=== PATIENT | female | born 2000 | race African-American/Black ===

== ENCOUNTER 2023-03-08 20:12 | Emergency (ER) | payer MEDICAID ==
[~2023-03-08] VITALS: Ht 162.6 cm; Wt 85.0 kg
[2023-03-08 20:21] VITALS: BP 105/45; PULSE 88; RESP 18; TEMP 98.7; O2SAT 100
[2023-03-08] MEDS ORDERED: GUAI-741 MT (21:07)
[2023-03-08] MEDS ORDERED: GUAIFENESIN 600MG ER TABLET PO SCH (21:15)
== END 2023-03-08 22:52 | disposition home or self-care (01) ==
LOC: ER 20:12
DX: J06.9 Acute upper respiratory infection, unspecified (principal); J45.909 Unspecified asthma, uncomplicated
CPT/HCPCS: 99282

== ENCOUNTER 2023-07-22 13:44 | Emergency (ER) | payer MEDICAID, OTHER ==
[~2023-07-22] VITALS: Ht 165.1 cm; Wt 80.0 kg
[~2023-07-22 13:44] MED LIST: GUAI-741 MT
[2023-07-22 13:56] VITALS: BP 128/67; O2SAT 100
[2023-07-22] MEDS ORDERED: IBUP-2030 MT (17:16)
[2023-07-22 17:44] VITALS: PULSE 87; RESP 16; TEMP 98.5
== END 2023-07-22 17:45 | disposition home or self-care (01) ==
LOC: ER 14:06
DX: S49.91XA Unspecified injury of right shoulder and upper arm, initial encounter (principal); J45.909 Unspecified asthma, uncomplicated; W18.30XA Fall on same level, unspecified, initial encounter; Y93.89 Activity, other specified; Y92.89 Other specified places as the place of occurrence of the external cause; Y99.8 Other external cause status
CPT/HCPCS: 73030; 81025; 99283

== ENCOUNTER 2023-09-08 10:47 | Emergency (ER) | payer MEDICAID ==
[~2023-09-08] VITALS: Ht 165.1 cm; Wt 76.0 kg
[~2023-09-08 10:47] MED LIST changes: +IBUP-2030 MT
[2023-09-08 11:08] VITALS: BP 129/87; PULSE 72; RESP 18; TEMP 98.5; O2SAT 99
[2023-09-08] MEDS ORDERED: B50 MT (13:02)
[2023-09-08] MEDS ORDERED: PROC-27 MT (13:02)
[2023-09-08] MEDS ORDERED: IBUP-2030 MT (13:02)
[2023-09-08] MEDS ORDERED: NAPHADR EACHEYE (13:02)
[2023-09-08] MEDS ORDERED: ACET-2708 MT (13:02)
== END 2023-09-08 13:09 | disposition home or self-care (01) ==
LOC: ER 10:47
DX: G43.909 Migraine, unspecified, not intractable, without status migrainosus (principal); J45.909 Unspecified asthma, uncomplicated
CPT/HCPCS: 99282

== ENCOUNTER 2024-01-14 18:01 | Emergency (ER) | payer BC, MEDICAID ==
[~2024-01-14] VITALS: Ht 165.1 cm; Wt 75.7 kg
[~2024-01-14 18:01] MED LIST changes: +ACET-2708 MT; +B50 MT; +NAPHADR EACHEYE; +PROC-27 MT
[2024-01-14 18:19] VITALS: O2SAT 99
[2024-01-14] MEDS ORDERED: IBUP-2029 MT (20:03)
[2024-01-14] MEDS ORDERED: CYCL10TA21 MT (20:03)
[2024-01-14 20:21] VITALS: BP 114/58; PULSE 71; RESP 18; TEMP 36.89184; O2SAT 98
== END 2024-01-14 20:27 | disposition home or self-care (01) ==
LOC: ER 18:01
DX: M25.511 Pain in right shoulder (principal); J45.909 Unspecified asthma, uncomplicated; Z79.899 Other long term (current) drug therapy
CPT/HCPCS: 99283